=== PATIENT | female | born 1970 ===

== ENCOUNTER 2018-12-04 16:37 | Emergency (ER) | payer OTHER ==
[2018-12-04 16:49] VITALS: BMI 22.1
[2018-12-04 16:54] VITALS: RESP 17; O2SAT 100
[2018-12-04 17:22] LABS: BASO % 0.4 % (0.0-2.0); EOS # 0.9 K/uL (0.0-0.7); EOS % 12.7 % (0.0-4.0); HEMOGLOBIN 14.5 g/dL (11.0-16.0); LYMPH # 2.4 K/uL (1.0-4.3); LYMPH % 33.5 % (20.0-40.0); MEAN CELL VOLUME 87.7 fL (81.0-99.0); MEAN CORPUSCULAR HEMOGLOBIN 29.8 pg (27.0-31.0); MEAN CORPUSCULAR HGB CONC 33.9 g/dL (33.0-37.0); MEAN PLATELET VOLUME 9.8 fL (7.2-11.7); MONO # 0.4 K/uL (0.0-0.8); MONO % 5.4 % (0.0-10.0); NEUT # 3.5 K/uL (1.8-7.0); RBC 4.88 Mil/uL (3.80-5.20); RED CELL DISTRIBUTION WIDTH 13.1 % (11.5-14.5); WHITE BLOOD COUNT 7.3 K/uL (4.8-10.8)
--- NOTE | 2018-12-04 17:29 | C.PDOC ---
History Of Present Illness 48 y/o female presents to the ED, brought in by friend, after witnessed near- syncopal episode. Patient had [place] the [place] and was walking around with friend when she suddenly felt her legs got weak and she slumped to the ground. Also reported minor left-side chest pain radiating to her back. Patient denies standing for a prolonged period of time. She did not lose consciousness or hit her head during the episode. States she ate a normal diet today. Otherwise patient denies any SOB, dizziness, cough, fevers, chills, focal weakness or numbness. Time Seen by Provider: 12/04/18 17:13 Chief Complaint (Nursing): Syncope History Per: Patient History/Exam Limitations: no limitations Onset/Duration Of Symptoms: Mins Current Symptoms Are (Timing): Gone Activity At Onset Of Symptoms: Walking Associated Symptoms Preceding Syncopal Episode: No Predromal Symptoms (Sudden Onset) Fall Associated With With Symptoms: No Injury As Result Of Fall Past Medical History Reviewed: Historical Data, Nursing Documentation, Vital Signs Vital Signs: Last Vital Signs Temp 98.8 F 12/04/18 16:50 Pulse 60 12/04/18 16:50 Resp 17 12/04/18 16:50 BP 122/62 12/04/18 16:50 Pulse Ox 100 12/04/18 16:50 - Medical History PMH: Rheumatoid Arthritis (SEVERE) Family History: States: No Known Family Hx - Social History Hx Alcohol Use: Yes Hx Substance Use: No - Immunization History Hx Tetanus Toxoid Vaccination: No Hx Influenza Vaccination: No Hx Pneumococcal Vaccination: No Review Of Systems Constitutional: Negative for: Fever, Chills, Weakness Eyes: Negative for: Vision Change Cardiovascular: Positive for: Chest Pain (left-sided, prior to near syncope). Negative for: Palpitations Respiratory: Negative for: Cough, Shortness of Breath Gastrointestinal: Negative for: Nausea, Vomiting Musculoskeletal: Negative for: Back Pain Neurological: Positive for: Other (Near syncope). Negative for: Numbness, Incoordination, Change in Speech, Headache Physical Exam - Physical Exam Appears: Non-toxic, No Acute Distress, Other (Appears older than stated age) Skin: Warm, Dry Head: Atraumatic, Normacephalic Eye(s): bilateral: Normal Inspection, PERRL, EOMI Neck: Normal ROM Chest: Tenderness (Minor tenderness to the left anterior chest wall, along mid- clavicular line T4-T5; No rashes or skin changes) Cardiovascular: Rhythm Regular, No Murmur Respiratory: Normal Breath Sounds, No Rales, No Rhonchi, No Wheezing Gastrointestinal/Abdominal: Soft, No Tenderness, No Distention, No Guarding Extremity: Bilateral: Atraumatic, Other (Severe rheumatoid arthritis changes of the B/L hands) Neurological/Psych: Oriented x3, Normal Speech, Normal Cognition, Normal Cranial Nerves, Normal Motor, Normal Sensation Gait: Steady ED Course And Treatment - Laboratory Results Result Diagrams: 12/04/18 17:19 12/04/18 17:19 Lab Interpretation: Abnormal (d-dimer 886 H) ECG: Interpreted By Me ECG Rhythm: Sinus Rhythm ECG Interpretation: Normal Rate From EC O2 Sat by Pulse Oximetry: 100 (on RA) Pulse Ox Interpretation: Normal - Radiology CXR: Interpreted by Me CXR Interpretation: Yes: No Acute Disease - CT Scan/US CTA r/o PE Other Rad Studies (CT/US): Interpreted By Me, Radiology Report Reviewed (no PE) Reevaluation Time: 21:12 Reassessment Condition: Improved (remains asymptomatic) Medical Decision Making Medical Decision Making: Impression: Near syncope, Chest pain Initial Plan: - CMP - Troponin I - CBC - PTT/PT - D dimer - Chest x-ray - EKG - Reassess vasovagal near-syncope no neuro involvement labs sig for d-dimer 886 with CTA neg for PE prob related to active RA OK for d/c home. Disposition Doctor Will See Patient In The: Office Counseled Patient/Family Regarding: Studies Performed, Diagnosis - Disposition Disposition: HOME/ ROUTINE Disposition Time: 21:13 Condition: GOOD Forms: [employer] (Tuvaluan) - Clinical Impression Clinical Impression: Near syncope - Scribe Statement The provider has reviewed the documentation as recorded by the Pavel Gonzalez Provider Attestation: All medical record entries made by the Pavel were at my direction and personally dictated by me. I have reviewed the chart and agree that the record accurately reflects my personal performance of the history, physical exam, medical decision making, and the department course for this patient. I have also personally directed, reviewed, and agree with the discharge instructions and disposition.
[2018-12-04 17:42] LABS: INR 1.1
--- NOTE | 2018-12-04 18:00 | RAD ---
Date of service: 12/04/2018 HISTORY: syncope COMPARISON: No prior. TECHNIQUE: 1 view obtained. FINDINGS: LUNGS: No active pulmonary disease. PLEURA: No significant pleural effusion identified, no pneumothorax apparent. CARDIOVASCULAR: No aortic atherosclerotic calcification present. Normal cardiac size. No pulmonary vascular congestion. OSSEOUS STRUCTURES: No significant abnormalities. VISUALIZED UPPER ABDOMEN: Normal. OTHER FINDINGS: None. IMPRESSION: No active disease.
[2018-12-04 18:04] LABS: ALB/GLOB RATIO 1.5 (1.0-2.1); ALBUMIN 4.5 g/dL (3.5-5.0); ALT/SGPT 10 U/L (9-52); AST/SGOT 20 U/L (14-36); BLOOD UREA NITROGEN 10 mg/dL (7-17); CALCIUM 9.6 mg/dl (8.6-10.4); GFR NON-AFRICAN AMERICAN > 60
[2018-12-04] MEDS ORDERED: Iodixanol 320 MG/ML 100 ML BOTTLE IV ONE (19:39)
[2018-12-04 21:28] VITALS: BP 124/78; PULSE 61; TEMP 98.3
--- NOTE | 2018-12-05 09:14 | CT ---
Date of service: 12/04/2018 PROCEDURE: CT Chest with contrast (Pulmonary Angiogram) HISTORY: L cp, near syncope, elev d dimer COMPARISON: None available. TECHNIQUE: Axial computed tomography images were obtained of the chest in the pulmonary arterial phase of enhancement. Coronal and sagittal reformatted images were created and reviewed. Intravenous contrast dose: 100 mL Visipaque 320 Radiation dose: Total exam DLP = 306.83 mGy-cm. This CT exam was performed using one or more of the following dose reduction techniques: Automated exposure control, adjustment of the mA and/or kV according to patient size, and/or use of iterative reconstruction technique. FINDINGS: PULMONARY ARTERIES: Unremarkable. No pulmonary embolism. AORTA: No acute findings. No thoracic aortic aneurysm. No aortic atherosclerotic calcification or mural plaque present. LUNGS: Unremarkable. No nodule, mass or pulmonary consolidation. PLEURAL SPACES: Unremarkable. No effusion or pneumothorax. HEART: Unremarkable. No cardiomegaly. No significant pericardial effusion. LYMPH NODES: No lymphadenopathy. There are few mediastinal calcifications likely reflecting old granulomatous disease. BONES, CHEST WALL: Unremarkable. No fracture or destructive lesion OTHER FINDINGS: Unremarkable. IMPRESSION: No evidence of pulmonary embolism. No acute infiltrate. The preliminary findings for this examination were reported by [facility] at 9:05 p.m. on 12/04/2018. There is concurrence of this report with the preliminary findings.
--- NOTE | 2018-12-08 21:49 | CARD ---
APPROVED REPORT Date of service: 12/04/2018 EKG Measurement Heart [id number] <Conclusion> Normal sinus rhythm Normal ECG
== END 2018-12-04 21:28 | disposition home or self-care (01) ==
LOC: C.ER 16:37
DX: R55 Syncope and collapse (principal); M06.9 Rheumatoid arthritis, unspecified
CPT/HCPCS: 71045; 71275; 80053; 82948; 84484; 85025; 85378; 85610; 85730; 93005; 99285; Q9967